=== PATIENT | male | born 1985 | race Two or more races ===

== ENCOUNTER 2017-12-01 14:12 | Emergency (ER) | payer OTHER ==
[~2017-12-01] VITALS: Ht 175.3 cm; Wt 81.6 kg
[2017-12-01] MEDS ORDERED: NKM (14:20)
--- NOTE | 2017-12-01 15:01 | Emergency Room Report ---
History of Present Illness General Chief Complaint: Laceration Source: Patient Present Illness HPI 32-year-old male presents ED for evaluation. Patient states he cut his finger at work today. Using knife. Tetanus up-to-date. Noted a lot of bleeding initially but has since resolved. Denies pain. Denies any other injuries. No other aggravating relieving factors. Denies any other associated symptoms Allergies: Coded Allergies: No Known Allergies (Unverified , 12/01/17) Patient History Past Medical History: none Past Surgical History: none Pertinent Family History: none Social History: Denies: smoking, alcohol use, drug use Immunizations: UTD Reviewed Nursing Documentation: PMH: Agreed; PSxH: Agreed Nursing Documentation-PMH Past Medical History: No History, Except For Review of Systems All Other Systems: negative except mentioned in HPI Physical Exam Vital Signs Date Time Temp Pulse Resp B/P (MAP) Pulse Ox O2 Delivery O2 Flow Rate FiO2 12/01/17 14:17 98.0 70 14 127/77 97 Room Air 98.1 Sp02 EP Interpretation: reviewed, normal General Appearance: no apparent distress, alert, GCS 15, non-toxic Head: normocephalic Eyes: bilateral eye normal inspection, bilateral eye PERRL ENT: normal ENT inspection Neck: normal inspection Respiratory: normal inspection Cardiovascular #1: normal inspection Gastrointestinal: normal inspection Rectal: deferred Genitourinary: no CVA tenderness Musculoskeletal: normal inspection Neurologic: alert, oriented x3, responsive, motor strength/tone normal, sensory intact, speech normal Psychiatric: judgement/insight normal, memory normal, mood/affect normal, no suicidal/homicidal ideation Skin: laceration - 1cm superficial lac to distal tip L index finger Lymphatic: normal inspection Medical Decision Making Diagnostic Impression: Primary Impression: Laceration ER Course Hospital Course 32-year-old M presents to ED s/p laceration L index finger using knife Clinical course Patient placed on stretcher. After initial history, physical exam reveals male in no acute distress. There is a superficial laceration to the distal aspect of the left index finger. No active bleeding. Wound irrigated. Dermabond applied Diagnosis - laceration Stable and discharged to home. wound Care instructions given. Followup with PMD. Return to ED if any signs of infection develop Last Vital Signs Date Time Temp Pulse Resp B/P (MAP) Pulse Ox O2 Delivery O2 Flow Rate FiO2 12/01/17 14:17 98.0 70 14 127/77 97 Room Air 98.1 Status: improved Disposition: HOME, SELF-CARE Condition: Stable Referrals: NOT CHOSEN IPA/MD,REFERRING (PCP) Departure Forms: Return to Work Return to Work Date: December 02, 2017 Work Restrictions: None Patient Instructions: Laceration Care, Adult, [id number] Jordin Mortensen MD December 01, 2017 15:01
[2017-12-01 15:02] VITALS: BP 117/81
== END 2017-12-01 15:04 | disposition home or self-care (01) ==
LOC: EMR 14:50
DX: S61.211A Laceration without foreign body of left index finger without damage to nail, initial encounter (principal); W26.0XXA Contact with knife, initial encounter; Y92.9 Unspecified place or not applicable
CPT/HCPCS: 99283

== ENCOUNTER 2019-07-01 15:39 | Emergency (ER) | payer OTHER ==
[~2019-07-01] VITALS: Ht 175.3 cm; Wt 81.6 kg
[~2019-07-01 15:39] MED LIST: NKM
[2019-07-01 16:12] VITALS: BP 110/80
--- NOTE | 2019-07-01 16:16 | NUR ---
ED Nurse Note: Pt walked into ED w/ c/o RLE rashes from possible spider bite. Pt pain RLE 8/10 and numbness. Denies radiation. NO acute distress.
[2019-07-01] MEDS ORDERED: CEPHALEXIN500 MG ORAL (16:24)
[2019-07-01] MEDS ORDERED: PREDNISONE20 MG ORAL (16:24)
[2019-07-01] MEDS ORDERED: BENADRYL25 MG ORAL (16:24)
--- NOTE | 2019-07-01 16:35 | NUR ---
ER DISCHARGE NOTE: Patient is cleared to be discharged per ERMD, pt is aox4, on room air, with stable vital signs. pt was given dc and prescription instructions, pt was able to verbalize understanding, pt id band removed. pt is able to ambulate with steady gait. pt took all belongings. 3 presc provided.
[2019-07-01 16:36] VITALS: BP 128/85
--- NOTE | 2019-07-01 16:49 | Emergency Room Report ---
History of Present Illness General Chief Complaint: Skin Rash/Abscess Source: Patient Present Illness HPI 34-year-old male presents with insect bite to his right lower extremity onset 4 days ago. He reports that it has been getting more red the past few days and it is itchy. Denies throat or lip swelling, shortness of breath. Denies any pain or fever. No other complaints at this time. Allergies: Coded Allergies: No Known Allergies (Unverified , 12/01/17) Patient History Past Medical History: see triage record Past Surgical History: none Pertinent Family History: none Reviewed Nursing Documentation: PMH: Agreed; PSxH: Agreed Review of Systems All Other Systems: negative except mentioned in HPI Physical Exam Vital Signs Date Time Temp Pulse Resp B/P (MAP) Pulse Ox O2 Delivery O2 Flow Rate FiO2 07/01/19 15:48 97.9 90 18 118/80 (93) 97 Room Air Sp02 EP Interpretation: reviewed, normal General Appearance: no apparent distress, alert, GCS 15, non-toxic Head: normocephalic, atraumatic Eyes: bilateral eye normal inspection, bilateral eye PERRL ENT: hearing grossly normal, normal pharynx, no angioedema, normal voice Neck: full range of motion, supple/symm/no masses Respiratory: chest non-tender, lungs clear, normal breath sounds, speaking full sentences Cardiovascular #1: regular rate, rhythm, no edema Cardiovascular #2: 2+ carotid (R), 2+ carotid (L), 2+ radial (R), 2+ radial (L) , 2+ dorsalis pedis (R), 2+ dorsalis pedis (L) Gastrointestinal: normal bowel sounds, non tender, soft, non-distended, no guarding, no rebound Rectal: deferred Genitourinary: normal inspection, no CVA tenderness Musculoskeletal: back normal, normal range of motion, calf tenderness, gait/ station normal, non-tender Neurologic: alert, motor strength/tone normal, oriented x3, sensory intact, responsive, speech normal Psychiatric: judgement/insight normal, memory normal, mood/affect normal, no suicidal/homicidal ideation Reflexes: 3+ bicep (R), 3+ bicep (L), 3+ tricep (R), 3+ tricep (L), 3+ knee (R) , 3+ knee (L) Skin: other - several insect bites to the right lower extremity with surrounding erythema, no drainage, no abscess Lymphatic: no adenopathy Medical Decision Making PA Attestation Dr. Vincent is my supervising physician whom patient management and care has been discussed with. Diagnostic Impression: Primary Impression: Insect bite Qualified Codes: W57.XXXA - Bitten or stung by nonvenomous insect and other nonvenomous arthropods, initial encounter ER Course Pt. presents to the ED c/o insect bite to right leg with itchiness Ddx considered but are not limited to allergic reaction, cellulitis, abscess Vital signs: are WNL, pt. is afebrile H&PE are most consistent with insect bite with possible allergic reaction vs cellulitis ORDERS: none required at this time, the diagnosis is clinical ED INTERVENTIONS: Given 25 mg PO Benadryl. DISCHARGE: At this time pt. is stable for d/c to home. Will provide printed patient care instructions, and prescriptions for Benadryl, Prednisone, and Keflex. Advised patient that he can hold off on Keflex for another day or two to see if symptoms improve with allergy meds. Verbalizes understanding. Care plan and follow up instructions have been discussed with the patient prior to discharge. Last Vital Signs Date Time Temp Pulse Resp B/P (MAP) Pulse Ox O2 Delivery O2 Flow Rate FiO2 07/01/19 16:12 98.2 75 20 110/80 97 Room Air Disposition: HOME, SELF-CARE Condition: Stable Scripts Cephalexin* (KEFLEX*) 500 Mg Capsule 500 MG ORAL EVERY 6 HOURS, #28 CAP Prov: Xena Lewis N. P.A. 07/01/19 Prednisone* (PREDNISONE*) 20 Mg Tablet 20 MG ORAL TID, #9 TAB 0 Refills Prov: Xena Lewis N. P.A. 07/01/19 Diphenhydramine Hcl* (BENADRYL*) 25 Mg Capsule 25 MG ORAL Q6H PRN for Itching, #20 CAP Prov: Xena Lewis N. P.A. 07/01/19 Patient Instructions: Cellulitis, [id number], Insect Bite, [id number] Additional Instructions: Return for any new or worsening symptoms, fever, drainage from the site. Take medications as directed. Xena Lewis P.AAlexys Jul 01, 2019 16:49
== END 2019-07-01 16:40 | disposition home or self-care (01) ==
LOC: EMR 16:40
DX: S80.861A Insect bite (nonvenomous), right lower leg, initial encounter (principal); W57.XXXA Bitten or stung by nonvenomous insect and other nonvenomous arthropods, initial encounter
CPT/HCPCS: 99282